=== PATIENT | female | born 1935 | race Native Hawaiian/Other Pacific Islander ===

== ENCOUNTER 2017-10-08 16:00 | Outpatient (CLI) | payer OTHER, BC ==
[~2017-10-08 16:00] MED LIST: AMBIEN5 MG PO; ASPIRIN LOW81 MG PO; BENA20TA2 PO; HYDR25TA60 PO; LIPITOR20 MG PO; SERT50TA PO; VERAPAMIL360 MG PO
== END 2017-10-08 19:42 | disposition home or self-care (01) ==
LOC: RAD 16:00
DX: M25.561 Pain in right knee (principal); M25.511 Pain in right shoulder

== ENCOUNTER 2019-09-13 12:13 | Outpatient (CLI) | payer OTHER, BC | END 2019-09-13 23:09 | disposition home or self-care (01) | LOC: RAD 12:13 | DX: S62.92XD Unspecified fracture of left hand, subsequent encounter for fracture with routine healing (principal) ==

== ENCOUNTER 2019-10-04 10:22 | Outpatient (CLI) | payer OTHER, BC | END 2019-10-04 22:33 | disposition home or self-care (01) | LOC: RAD 10:22 | DX: M25.532 Pain in left wrist (principal) ==

== ENCOUNTER 2022-03-21 16:58 | Emergency (ER) | payer OTHER, BC ==
[~2022-03-21] VITALS: Ht 154.9 cm; Wt 47.2 kg
[2022-03-21 16:58] VITALS: TEMP 98
[2022-03-21 18:39] VITALS: BP 116/78
== END 2022-03-21 18:42 | disposition home or self-care (01) ==
LOC: ED 16:58
PROC: 0HQ1XZZ Repair Face Skin, External Approach (ICD-10-PCS; principal; 2022-03-21)
DX: S01.81XA Laceration without foreign body of other part of head, initial encounter (principal); W01.198A Fall on same level from slipping, tripping and stumbling with subsequent striking against other object, initial encounter; Y92.098 Other place in other non-institutional residence as the place of occurrence of the external cause
CPT/HCPCS: 99283

== ENCOUNTER 2022-05-14 10:46 | Outpatient (CLI) | payer OTHER, BC ==
[2022-05-14 11:02] LABS: PLATELET COUNT 217 K/uL (152-353)
[2022-05-14 11:18] LABS: POTASSIUM 4.7 mmol/L (3.6-5.2)
== END 2022-05-14 21:37 | disposition home or self-care (01) ==
LOC: LAB 10:46
PROVIDERS: ATTEND Nurse Practitioner Family
DX: I12.9 Hypertensive chronic kidney disease with stage 1 through stage 4 chronic kidney disease, or unspecified chronic kidney disease (principal); N18.2 Chronic kidney disease, stage 2 (mild); I48.91 Unspecified atrial fibrillation; E03.8 Other specified hypothyroidism; R63.4 Abnormal weight loss
CPT/HCPCS: 80053; 80061; 82607; 82746; 84436; 84443; 85027

== ENCOUNTER 2022-08-13 12:47 | Outpatient (CLI) | payer OTHER, BC ==
[2022-08-13 13:35] LABS: PLATELET COUNT 210 K/uL (152-353)
[2022-08-13 13:53] LABS: POTASSIUM 4.2 mmol/L (3.6-5.2)
== END 2022-08-13 20:01 | disposition home or self-care (01) ==
LOC: LAB 12:47
PROVIDERS: ATTEND Nurse Practitioner Family
DX: I48.20 Chronic atrial fibrillation, unspecified (principal); N18.30 Chronic kidney disease, stage 3 unspecified; E03.8 Other specified hypothyroidism; N95.1 Menopausal and female climacteric states; E78.2 Mixed hyperlipidemia; R06.02 Shortness of breath; D51.0 Vitamin B12 deficiency anemia due to intrinsic factor deficiency; R53.1 Weakness; R63.4 Abnormal weight loss; I12.9 Hypertensive chronic kidney disease with stage 1 through stage 4 chronic kidney disease, or unspecified chronic kidney disease
CPT/HCPCS: 80053; 80061; 82607; 82746; 84436; 84443; 85027

== ENCOUNTER 2022-11-12 10:52 | Outpatient (CLI) | payer OTHER, BC ==
[2022-11-12 11:11] LABS: PLATELET COUNT 195 K/uL (152-353)
[2022-11-12 11:31] LABS: POTASSIUM 4.7 mmol/L (3.6-5.2)
== END 2022-11-12 19:37 | disposition home or self-care (01) ==
LOC: LAB 10:52
PROVIDERS: ATTEND Internal Medicine
DX: I12.9 Hypertensive chronic kidney disease with stage 1 through stage 4 chronic kidney disease, or unspecified chronic kidney disease (principal); N18.2 Chronic kidney disease, stage 2 (mild); I48.91 Unspecified atrial fibrillation; E03.8 Other specified hypothyroidism
CPT/HCPCS: 80053; 80061; 82607; 82746; 84436; 84443; 85027

== ENCOUNTER 2023-02-04 10:38 | Outpatient (CLI) | payer OTHER, BC ==
[2023-02-04 11:18] LABS: PLATELET COUNT 252 K/uL (152-353)
[2023-02-04 11:22] LABS: POTASSIUM 4.7 mmol/L (3.6-5.2)
== END 2023-02-04 19:00 | disposition home or self-care (01) ==
LOC: LAB 10:38
PROVIDERS: ATTEND Internal Medicine
DX: I12.9 Hypertensive chronic kidney disease with stage 1 through stage 4 chronic kidney disease, or unspecified chronic kidney disease (principal); N18.2 Chronic kidney disease, stage 2 (mild); I48.91 Unspecified atrial fibrillation; E03.8 Other specified hypothyroidism
CPT/HCPCS: 80053; 80061; 82607; 82746; 84436; 84443; 85027